=== PATIENT | female | born 1970 ===

== ENCOUNTER 2024-05-22 05:30 | Day surgery (SDC) | payer OTHER ==
[2024-05-18 08:45] VITALS: BP 116/75
[2024-05-18 09:16] LABS: HEMATOCRIT 42.2 % (36.0-45.00); HEMOGLOBIN 13.9 g/dL (12.0-15.00); MEAN CELL VOLUME 88.3 fL (80.00-100.00); MEAN CORPUSCULAR HEMOGLOBIN 29.1 pg (27.00-32.0); PLATELET COUNT 337 K/uL (150-450); RED BLOOD COUNT 4.77 M/uL (4.00-6.00); RED CELL DISTRIBUTION WIDTH 13.1 % (11.5-14.5)
[2024-05-18 09:49] LABS: INR 0.98; PARTIAL THROMBOPLASTIN TIME 30.5 SECONDS (22.0-34.0); PROTHROMBIN TIME 10.7 SECONDS (9.0-11.5)
[2024-05-18 10:14] LABS: ALBUMIN 3.9 gm/dL (3.4-5.0); BILIRUBIN TOTAL 0.42 mg/dL (0.3-1.2); CALCIUM 9.7 mg/dL (8.5-10.1); CHOL HDL RATIO 4.2 (0-5.0); CREATININE SERUM 0.81 mg/dL (0.55-1.02); GFR 73.68; GLOBULINA 3.7 G/DL (2.4-3.5); POTASSIUM 5.01 mEq/L (3.5-5.1); TOTAL PROTEIN 7.6 gm/dL (6.4-8.2)
[2024-05-18 10:32] LABS: URINE APPEARANCE Clear; URINE BILIRRUBIN Negative (NEGATIVE); URINE BLOOD Negative; URINE COLOR Yellow; URINE GLUCOSE Negative (NEGATIVE); URINE KETONE Negative (NEGATIVE); URINE LEUKOCYTE Trace; URINE NITRATE Negative; URINE PROTEIN Negative (NEGATIVE); URINE UROBILINOGEN 0.2 E.U./dl
[2024-05-18 10:37] LABS: URINE BACTERIA 234.9 uL (0.0-1933); URINE EPITHELIAL CELLS 4.7 uL (0.0-38.8); URINE RBC 6.9 uL (0.0-20.8); URINE WBC 6.3 uL (0.0-23.2)
[~2024-05-22] VITALS: Ht 160 cm; Wt 77.1 kg
[2024-05-22] MEDS ORDERED: BUPIVACAINE HCL/MPF 0.5% 30ML VIAL ONE (07:38)
[2024-05-22] MEDS ORDERED: LIDOCAINE HCL 1%/EPINEPHRINE 20ML VIAL IJ ONE ×2 (07:39→08:45)
[2024-05-22] MEDS ORDERED: CEFAZOLIN SODIUM 1,000 MG VIAL ONE (07:49)
[2024-05-22] MEDS ORDERED: BUPIVACAINE HCL 30 ML VIAL IJ ONE (08:45)
[2024-05-22] MEDS ORDERED: CEFAZOLIN SODIUM 1,000 MG VIAL IV ONE (08:45)
[2024-05-22] MEDS ORDERED: DUI500 PO (09:23)
[2024-05-22] MEDS ORDERED: TRAM1TAB98 PO (09:23)
[2024-05-22] MEDS ORDERED: ALEVE220 M1 PO (09:23)
== END 2024-05-22 12:45 | disposition home or self-care (01) ==
LOC: CIR.AMB 05:30
PROVIDERS: ATTEND Orthopaedic Surgery
DX: S83.282A Other tear of lateral meniscus, current injury, left knee, initial encounter (principal); S83.242A Other tear of medial meniscus, current injury, left knee, initial encounter; M94.262 Chondromalacia, left knee; M65.962 Unspecified synovitis and tenosynovitis, left lower leg; M23.42 Loose body in knee, left knee